=== PATIENT | male | born 1970 | race Caucasian/White ===

== ENCOUNTER 2022-11-15 20:40 | Emergency (ER) | payer OTHER ==
[~2022-11-15] VITALS: Ht 172.7 cm; Wt 95.3 kg
[2022-11-15] MEDS ORDERED: ROSU10TA2 PO (20:57)
[2022-11-15] MEDS ORDERED: ASPIRIN 81 MG TAB.CHEW PO ONE (21:15)
--- NOTE | 2022-11-15 21:15 | NUR ---
Dr. Gerber at bedside. MSE in progress.
[2022-11-15 21:20] LABS: HEMATOCRIT 39.4 % (36.7-47.1); MEAN CORPUSCULAR HEMOGLOBIN 31.4 uug (23.8-33.4); PLATELET COUNT (AUTO) 188 K/uL (152-348)
[2022-11-15] MEDS ORDERED: ASPIRIN 81 MG TAB.CHEW ONE (21:20)
[2022-11-15 21:30] LABS: CARBON DIOXIDE 29 mmol/L (21-32); CHLORIDE 106 mmol/L (98-107); CREATININE 1.1 mg/dL (0.6-1.3); GLUCOSE 120 mg/dL (74-106); POTASSIUM 3.9 mmol/L (3.5-5.1); UREA NITROGEN, BLOOD 15 mg/dL (7-18)
[2022-11-15 21:38] LABS: ALANINE AMINOTRANSFERASE 34 U/L (16-63); ALKALINE PHOSPHATASE 79 U/L (50-136); ASPARTATE AMINOTRANSFERASE 22 U/L (15-37); BILIRUBIN,DIRECT 0.2 mg/dL (0.0-0.2); BILIRUBIN,TOTAL 0.6 mg/dL (0.2-1.0); TOTAL PROTEIN, SERUM 6.6 g/dL (6.4-8.2)
--- NOTE | 2022-11-15 23:15 | NUR ---
Patient awake lying in bed. NAD noted.
[2022-11-16] MEDS ORDERED: BLOO-1731 MC (01:15)
--- NOTE | 2022-11-16 01:26 | NUR ---
Patient discharged to home in stable condition. A/O x 4. NAD noted. Ambulatory with a steady gait. All belongings with a patient. Written and verbal after care instructions given. Patient verbalizes understanding of instructions. Stressed follow up or return to ER for worsening s/s.
[2022-11-16 01:28] VITALS: BP 120/65
== END 2022-11-16 01:27 | disposition home or self-care (01) ==
LOC: ER 20:56
DX: R07.89 Other chest pain (principal); M25.561 Pain in right knee; R94.31 Abnormal electrocardiogram [ECG] [EKG]; E78.5 Hyperlipidemia, unspecified; F17.210 Nicotine dependence, cigarettes, uncomplicated; Z86.16 Personal history of COVID-19
CPT/HCPCS: 36415; 71045; 83735; 84484; 85025; 93005; A4663

== ENCOUNTER 2024-12-06 07:53 | Emergency (ER) | payer OTHER ==
[~2024-12-06] VITALS: Ht 175.3 cm; Wt 99.8 kg
[~2024-12-06 07:53] MED LIST: BLOO-1731 MC; ROSU10TA2 PO
[2024-12-06] MEDS ORDERED: AZEL30SP2 NS (08:55)
[2024-12-06] MEDS ORDERED: ANAS1TAB8 PO (08:55)
[2024-12-06] MEDS ORDERED: ASPI81TA31 PO (08:55)
[2024-12-06] MEDS ORDERED: ATOR20TA PO (08:55)
[2024-12-06] MEDS ORDERED: TEST1.25 TD (08:55)
[2024-12-06] MEDS ORDERED: HYDR28.316 TP (09:00)
[2024-12-06 09:07] VITALS: BP 123/78; O2SAT 98
== END 2024-12-06 09:11 | disposition home or self-care (01) ==
LOC: ER 07:53
DX: K62.5 Hemorrhage of anus and rectum (principal); F17.210 Nicotine dependence, cigarettes, uncomplicated; I25.2 Old myocardial infarction; Z79.811 Long term (current) use of aromatase inhibitors; Z79.82 Long term (current) use of aspirin
CPT/HCPCS: A4606; A4663